=== PATIENT | male | born 1975 | race Caucasian/White ===

== ENCOUNTER 2017-01-27 18:25 | Emergency (ER) | payer OTHER ==
--- NOTE | 2017-01-27 18:35 | UCPHY ---
H & P Patient Type: New HPI/ROS: CHIEF COMPLAINT: Chest pain HISTORY OF PRESENT ILLNESS: The patient is a 41-year-old male presenting with chest pain. The patient has been experiencing intermittent chest pain for the past few days. Today, while looking for Easter eggs with his kids, he developed a sharp, severe chest pain about 1 hour ago. This pain lasted for about 30 seconds and improved when he sat down, but then was review left with a residual achiness across the entire chest. Furthermore, at onset of pain the patient was diaphoretic, and is damp upon arrival The patient has improved, but remained a dull ache in his chest. He also has noted decreased exercise capacitance with exertional fatigue for 1 month Risk factor assessment: Smoker, quit 1 and half months ago Family history: The patent's father had ND at age 38, though is alive still. Unknown as to whether he has high blood pressure, elevated cholesterol or diabetes as he has not had a family physician physical for over 5 years Not obese The patient had a stress test 5 years ago. He has no history of blood clots. No risk factors for DVT/PE Perc rule negative for PE No risk factors for aortic dissection REVIEW OF SYSTEMS: Constitutional: No fever, no chills. Eyes: No discharge. ENT: No sore throat. Cardiovascular: See above, no palpitations. Respiratory: No cough, shortness of breath, or wheezing. Gastrointestinal: No nausea vomiting or diarrhea. No abdominal pain. Genitourinary: No hematuria or frequency. Musculoskeletal: No back pain. Skin: No rashes. Neurological: No headache. 10 point ROS otherwise negative Source: Patient - Medical/Surgical History Hx Asthma: No Hx Chronic Respiratory Disease: No Hx Diabetes: No Hx Cardiac Disease: No Hx Renal Disease: No Hx Cirrhosis: No Hx Alcoholism: No Hx HIV/AIDS: No Hx Splenectomy or Spleen Trauma: No Other PMH: Family History: Father ND age 38, Grandfather ND age 34. - Family History Significant Family History: No pertinent family hx - Social History Smoking Status: Never smoked Alcohol Use: None Drug Use: None Additional Social History: Quit smoking 2 months ago. - Physical Exam Exam: General Appearance: Alert, no distress. Afebrile. Normal phonation. No respiratory distress. Tall thin man Eyes: Pupils equal and round no pallor or injection. No icterus ENT, Mouth: Mucous membranes moist. Pharynx without erythema or exudate. TM Clear. Neck: No adenopathy. Supple. No JVD. Trachea in midline. Respiratory: There are no retractions, lungs are clear to auscultation. No palpable chest wall tenderness Cardiovascular: Regular rate and rhythm, no murmur Abdomen: Soft and nontender, no masses, bowel sounds normal. Neurological: Ox3. No motor weakness. Sensation intact. Gait nl. Skin: Warm and dry, no rashes. Musculoskeletal: No joint swelling. Extremities: Tenderness laterally to neurovascular bundle on the right thighs - this is been going on for several months. No groin tenderness over the neurovascular bundle. No tenderness along the adductor canal. No calf tenderness. No cords present in the extremities. Psychiatric: Normal affect. Constitutional: Initial Vital Signs Temperature (C) 36.4 C 01/27/17 18:36 Heart Rate 64 01/27/17 18:36 Respiratory Rate 16 01/27/17 18:36 Blood Pressure 137/86 H 01/27/17 18:36 O2 Sat (%) 94 01/27/17 18:36 O2 Delivery Mode Room Air Allergies/Adverse Reactions: No Known Allergies Allergy (Unverified 01/27/17 18:34) Home Medications: Medication Instructions Recorded NK [No Known Home Meds] 01/27/17 Medical Decision Making - Diagnostics EKG Interpretation: The 12 lead EKG was interpreted by myself. See hard copy and/or "tracemaster" electronic copy for interpretation: Sinus rhythm, nonspecific intraventricular conduction delay. Imaging: Imaging Impressions Chest X-Ray 01/27/17 19:06 Impression: Normal chest. Films reviewed by me on PACS. ED Course/Re-evaluation: The patient is a 41-year-old male with significant family history for cardiac disease who presents with chest pain. The patient developed sharp, left sided chest pain1 hour ago. He had associated diaphoresis. This pain lasted for about 30 seconds and subsided. The patient continues to have a dull ache in his chest. EKG is normal. Troponin and labs were ordered. D-dimer and Troponin are normal, including to R interval troponin. Labs are otherwise insignificant. I viewed the X-ray of the chest myself on the PACS system. X-ray is negative. Please see the full radiology report in the imaging section. 9:15 p.m.: I reexamined the patient. He states his pain is a 1/10. His chest is nontender to the touch. 9:50 p.m.: I spoke with the patient. His heart score is 4 suggesting moderate risk. Thus I recommended admission to the hospital. I spoke to the hospitalist , Dr. Meeks at [facility]. She accepts the patient for direct admission. I offered transfer via ambulance, the patient declines. His brother will drive him in a private vehicle. 10:20 p.m.: The patient no longer wants to be admitted. He would rather followup with cardiology as an outpatient. I explained the dangers and risks of going home and the patient would like to leave against medical advice. He verbally accepted this risk. He did not want to be admitted, understanding the scope of treatment plan, as well as exhibiting normal mental status. Furthermore, he should be signing out against medical advice as he declined the admission which would be necessary for full evaluation. He was given a welcomed, reasoned invitation to return should he have 2nd thoughts. Differential Diagnosis: Differential diagnosis includes but is not limited to the following: ACS, myocardial infarction, pneumothorax, pleurisy, pulmonary embolus, aortic dissection, anxiety, muscle strain. - Data Points Laboratory Results: Laboratory Results 01/27/17 18:50 01/27/17 18:50 01/27/17 01/27/17 01/27/17 20:34 18:50 18:50 WBC RBC Hgb Hct MCV MCH MCHC RDW Plt Count MPV Neut % (Auto) Lymph % (Auto) Sunflower % (Auto) Eos % (Auto) Baso % (Auto) Nucleat RBC Rel Count Absolute Neuts (auto) Absolute Lymphs (auto) Absolute Monos (auto) Absolute Eos (auto) Absolute Basos (auto) Absolute Nucleated RBC Immature Gran % Immature Gran # D-Dimer < 0.27 ug/mLFEU ug/mLFEU (0.00-0.50) Sodium 139 mEq/L mEq/L (134-144) Potassium 3.9 mEq/L mEq/L (3.5-5.2) Chloride 106 mEq/L mEq/L (97-110) Carbon Dioxide 21 mEq/l L mEq/l (22-31) Anion Gap 12 mEq/L mEq/L (8-16) BUN 17 mg/dL mg/dL (7-23) Creatinine 1.1 mg/dL mg/dL (0.7-1.3) Estimated GFR > 60 Glucose 93 mg/dL mg/dL (70-100) Calcium 9.1 mg/dL mg/dL (8.5-10.4) Total Bilirubin 0.3 mg/dL mg/dL (0.1-1.4) AST 15 IU/L L IU/L (17-59) ALT 30 IU/L IU/L (21-72) Alkaline Phosphatase 69 IU/L IU/L (38-126) Troponin I < 0.012 ng/mL ng/mL < 0.012 ng/mL ng/mL (0-0.034) (0-0.034) Total Protein 6.2 g/dL L g/dL (6.3-8.2) Albumin 3.5 g/dL g/dL (3.5-5.0) 01/27/17 18:50 WBC 5.65 10^3/uL 10^3/uL (3.80-9.50) RBC 4.17 10^6/uL L 10^6/uL (4.40-6.38) Hgb 13.8 g/dL g/dL (13.7-17.5) Hct 37.9 % L % (40.0-51.0) MCV 90.9 fL fL (81.5-99.8) MCH 33.1 pg pg (27.9-34.1) MCHC 36.4 g/dL g/dL (32.4-36.7) RDW 11.7 % % (11.5-15.2) Plt Count 220 10^3/uL 10^3/uL (150-400) MPV 10.3 fL fL (8.7-11.7) Neut % (Auto) 48.0 % % (39.3-74.2) Lymph % (Auto) 38.4 % % (15.0-45.0) Sunflower % (Auto) 10.3 % % (4.5-13.0) Eos % (Auto) 2.3 % % (0.6-7.6) Baso % (Auto) 0.5 % % (0.3-1.7) Nucleat RBC Rel Count 0.0 % % (0.0-0.2) Absolute Neuts (auto) 2.71 10^3/uL 10^3/uL (1.70-6.50) Absolute Lymphs (auto) 2.17 10^3/uL 10^3/uL (1.00-3.00) Absolute Monos (auto) 0.58 10^3/uL 10^3/uL (0.30-0.80) Absolute Eos (auto) 0.13 10^3/uL 10^3/uL (0.03-0.40) Absolute Basos (auto) 0.03 10^3/uL 10^3/uL (0.02-0.10) Absolute Nucleated RBC 0.00 10^3/uL 10^3/uL (0-0.01) Immature Gran % 0.5 % % (0.0-1.1) Immature Gran # 0.03 10^3/uL 10^3/uL (0.00-0.10) D-Dimer Sodium Potassium Chloride Carbon Dioxide Anion Gap BUN Creatinine Estimated GFR Glucose Calcium Total Bilirubin AST ALT Alkaline Phosphatase Troponin I Total Protein Albumin Medications Given: Discontinued Medications Aspirin (Aspirin) 81 mg PO EDNOW ONE Stop: 01/27/17 19:20 Last Admin: 01/27/17 19:00 Dose: 81 mg Departure - Departure Disposition: Against Medical Advice Clinical Impression: Chest pain Qualifiers: Chest pain type: unspecified Qualified Code(s): R07.9 - Chest pain, unspecified Condition: Fair Additional Instructions: Call for follow-up appointment on Saturday thing. See the referrals and close Take aspirin 81 mg orally daily No physical exertion except for walking is aloud. Return if her chest discomfort reoccurs. Referrals: NONE *PRIMARY CARE P,. [Primary Care Provider] - As per Instructions Ludwig Almeida MD [Medical Doctor] - As per Instructions Pardeep Hua MD [Medical Doctor] - As per Instructions - PQRS PQRS Measurement: NA Report Scribed for: Hood Schuler Report Scribed by: Aminta Judd Date of Report: 01/27/17 Time of Report: 18:34
[2017-01-27 18:39] VITALS: RESP 16
--- NOTE | 2017-01-27 18:41 | CPEKG ---
Heart Rate: 64 RR Interval: 938 P-R Interval: 152 QRSD Interval: 114 QT Interval: 416 QTC Interval: 430 P [place]: 12 QRS [place]: 77 T Wave [place]: 25 EKG Severity - ABNORMAL ECG - EKG Impression: SINUS RHYTHM EKG Impression: NONSPECIFIC INTRAVENTRICULAR CONDUCTION DELAY Electronically Signed By: Hood Schuler 28-Jan-2017 00:04:18
[2017-01-27] MEDS ORDERED: ASPIRIN 81 MG CHEWABLE TAB ONE (18:44)
[2017-01-27 18:57] LABS: % IMMATURE GRANULYOCYTES 0.5 % (0.0-1.1); ABSOLUTE IMMATURE GRANULOCYTES 0.03 10^3/uL (0.00-0.10); ADD DIFF? NO; ADD MORPH? NO; ADD SCAN? NO; ATYPICAL LYMPHOCYTE FLAG 10 (0-99); FRAGMENT RBC FLAG 0 (0-99); HEMATOCRIT 37.9 % (40.0-51.0); HEMOGLOBIN 13.8 g/dL (13.7-17.5); LEFT SHIFT FLG 0 (0-99); LIPEMIA HEMOLYSIS FLAG 90 (0-99); MEAN CELL HEMOGLOBIN 33.1 pg (27.9-34.1); MEAN CELL HEMOGLOBIN CONCENTR. 36.4 g/dL (32.4-36.7); MEAN CELL VOLUME 90.9 fL (81.5-99.8); MEAN PLATELET VOLUME 10.3 fL (8.7-11.7); PLATELET CLUMPS FLAG 0 (0-99); PLATELET COUNT 220 10^3/uL (150-400); RED BLOOD CELL COUNT 4.17 10^6/uL (4.40-6.38); RED CELL DISTRIBUTION WIDTH 11.7 % (11.5-15.2)
[2017-01-27] MEDS ORDERED: ASPIRIN 81 MG CHEWABLE TAB PO ONE (19:19)
[2017-01-27 19:22] LABS: ALANINE AMINOTRANSFERASE 30 IU/L (21-72); ALBUMIN 3.5 g/dL (3.5-5.0); ALKALINE PHOSPHATASE 69 IU/L (38-126); ANION GAP 12 mEq/L (8-16); ASPARTATE AMINOTRANSFERASE 15 IU/L (17-59); BILIRUBIN,TOTAL 0.3 mg/dL (0.1-1.4); CALCIUM 9.1 mg/dL (8.5-10.4); CARBON DIOXIDE 21 mEq/l (22-31); CHLORIDE 106 mEq/L (97-110); CREATININE 1.1 mg/dL (0.7-1.3); GLOMERULAR FILTRATION RATE > 60; POTASSIUM 3.9 mEq/L (3.5-5.2); SODIUM 139 mEq/L (134-144); TOTAL PROTEIN 6.2 g/dL (6.3-8.2)
[2017-01-27 19:23] LABS: GLUCOSE 93 mg/dL (70-100)
[2017-01-27 19:26] LABS: TROPONIN I < 0.012 ng/mL (0-0.034)
[2017-01-27 22:35] VITALS: TEMP 98.1
[2017-01-27 23:51] VITALS: BP 126/94; PULSE 60; O2SAT 98
== END 2017-01-27 22:20 | disposition left against medical advice (07) ==
LOC: CED 18:25 → CEDHOLD 21:59 → UNDOADMOB 21:59 → CED 22:20
DX: R07.9 Chest pain, unspecified (principal); Z87.891 Personal history of nicotine dependence
CPT/HCPCS: 71020-PO; 80053-PO; 84484-PO; 85025-PO; 85378-PO; 93010-PO; 99205-PO; G0463-PO

== ENCOUNTER → 2017-01-29 | Outpatient (CLI) | payer OTHER ==
[~2017-01-29] MED LIST: IOPAMIDOL (ISOVUE 370) 100 ML BTL IV ONE
== END ==
LOC: FIMAGING 15:18
PROVIDERS: ATTEND Pediatrics
DX: R07.89 Other chest pain (principal)
CPT/HCPCS: Q9967